=== PATIENT | male | born 1990 | race Caucasian/White ===

== ENCOUNTER 2025-04-26 23:12 | Emergency (ER) | payer OTHER, SELFPAY ==
[2025-04-26 23:31] VITALS: BP 93/70
[2025-04-27 00:50] VITALS: BMI 22.3
--- NOTE | 2025-04-27 00:52 | EDRN ---
Pt complains of 'really bad stomach pains.' Brother adds pt has had diarrhea x 5 days, at least 10 times per day for past 3 days. Pt thought he was better and was able to eat yesterday and couple times today and says pain returned worse. Pt does
not have abd pain now. Pt has had nausea, no vomiting. No fever/chills/cough, cp, sob, urinary symptoms, dizziness, ill contacts. Pt has felt weak. Pt returned from a cruise 8 days ago and symptoms started 3-4 days afterwards. Last episode
diarrhea was couple hours before arrival to ED. Little nausea now. 'Stomach feels really really empty' which pt says he thinks makes him feels nausea now. Last ate around 1800.
[2025-04-27 01:02] VITALS: BP 97/68
[2025-04-27 01:16] LABS: Hematocrit 42.7 % (39.0-52.0); Hemoglobin 14.9 g/dL (13.0-18.0); Mean Corp Hgb Conc. 34.9 g/dL (33.0-37.0); Mean Corpuscular Volume 92.8 fL (80.0-94.0); Nucleated Red Blood Cells % 0 % (-); Platelet Count 239 10^3/uL (130-400); Red Cell Dist. Width 11.7 % (11.5-14.5)
--- NOTE | 2025-04-27 01:28 | ED.GENMED ---
History of Present Illness
General
Chief Complaint: Abdominal Pain
Source: patient
Time Seen by Provider: 04/27/25 01:21
History of Present Illness
History of Present Illness:
35-year-old male with no significant past medical history presents to the emergency department for evaluation of generalized abdominal pain for the last few days accompanied with multiple episodes of loose stool, currently at time of my exam pain is
improved and notes that he has not had diarrhea in the last 24 hours. Patient endorses recent travel on a cruise to [place], no other known sick contacts or recent antibiotics. Denies any fevers. He does note that when he wiped a couple of times
he did notice a small little streak of blood on the toilet paper but overall no blood with in the stool. He denies any fevers, chills, rigors, urinary symptoms, chest pain or shortness of breath. No known history of ulcerative colitis or Crohn's
disease. Social history was otherwise noncontributory.
Past History
Past History
ED Past Medical History: None
ED Past Surgical History: Tonsilectomy
Social History
Tobacco: Smoker
Alcohol: None
Drug: None
Personal: Single
Living: with family
Employment: Employed
Review of Systems
Review of Systems
All Other Systems: ROS reviewed and negative except as documented in HPI and ROS
Phy Exam
Physical Exam
Physical Exam:
GENERAL: Alert , in no apparent distress
EYE: clear conjunctiva b/l
HEAD: NCAT
ENT: mmm.
CARDIAC: Regular rate and rhythm .
LUNGS: Clear breath sounds bilaterally, no acute respiratory distress, no wheezes/rales/rhonchi
ABDOMEN: Soft, without focal tenderness, no r/g, no cvat
NEUROLOGICAL: Alert and oriented
SKIN: Warm and dry, skin intact.
MUSCULOSKELETAL: No edema, well perfused.
PSYCH: Normal and appropriate interaction.
Scores
Heart Failure Risk
Heart Failure Risk Score: Not Applicable
Heart Score for Chest Pain Patients
STEMI patient?: Not applicable
Withdrawal Assessment of Alcohol
Withdrawal Assessment Completed?: Not applicable
Course
Orders/Labs/Results
Orders:
Orders
04/27/25 00:56
IV Insert/Care/Rem.- Treatment PRN
04/27/25 01:02
Complete Blood Count/With Diff Urgent
Comprehensive Metabolic Panel Urgent
Lipase Urgent
04/27/25 01:28
CT Abd/pelvis W Iv Cont Urgent
Comment:
Reason For Exam: generalized abd pain, diarrhea
Abnormal Lab Results
04/27/25
01:02
RBC 4.60 L 10^6/uL
(4.70-6.10)
MCH 32.4 H pg
(27.0-31.0)
MPV 10.5 H fL
(7.4-10.4)
Absolute Monos (auto) 1.0 H 10^3/uL
(0.1-0.6)
Lymphocytes % 18.0 L %
(20.5-51.1)
Monocytes % 12.3 H %
(1.7-9.3)
04/27/25 01:02
04/27/25 01:02
Vital Signs
Initial and Last Documented VS:
Initial Vital Signs
Temp Pulse Resp BP Pulse Ox
99.7 F 92 18 93/70 98
04/26/25 23:31 04/26/25 23:31 04/26/25 23:31 04/26/25 23:31 04/26/25 23:31
Last Documented Vital Signs
Temp Pulse Resp BP Pulse Ox
98.6 F 89 16 97/68 99
04/27/25 01:02 04/27/25 01:02 04/27/25 01:02 04/27/25 01:02 10/25/25 01:32
MDM/Problems Addressed
Differential Diagnosis Includes:
Colitis
Travelers Diarrhea
UC
Crohns disease
Diverticulitis
C. Diff Colitis
Appy
MDM/Problems Addressed:
35-year-old male presenting the ER for evaluation of generalized abdominal pain with some frequent episodes of diarrhea, symptoms over the last 12 hours or so seem to have been mildly improved. Arrives to the ER hemodynamically stable, overall
well-appearing and in no acute distress. Labs initiated in triage are reassuring. Will obtain CT to further evaluate. Suspect mild case of travelers diarrhea/colitis. Disposition pending.
*Radiology
Radiology exam reviewed: radiology read reviewed
*Pulse Oximetry
SaO2: 99
Oxygen Mode of Delivery: Room air
Patient hypoxic: no
*Critical Care Note
Total Time (30-74mins, 75-104mins- exclusive of procedures): Not Applicable
Patient Management
Escalation/DeEscalation of care consider admission/obs:
CT scan compatible with colitis. Patient remains overall well-appearing and in no acute distress. I did advise patient this was likely self-limiting and would get better on its own however I did provide him with a prescription for Cipro to take
for 3 days if symptoms persist throughout the weekend or symptoms seem to worsen. He is aware of return precautions to the ER. Otherwise stable for discharge home. I did consider obtaining stool sample however patient was unable to provide a
sample while in the ER.
ED Attending Note
-
Portions of this chart may have been created with voice recognition software.� Occasional wrong word or��sound alike� substitutions may have occurred due to the inherent limitations of voice recognition software.
Discharge Plan
Departure
Patient Disposition: Home (Routine Discharge)
Date of Disposition: 04/27/25
Time of Disposition: 02:26
Patient with high blood pressure during this ER visit?: No
Discharge Problem:
Colitis
Instructions: Colitis (DC)
Prescriptions:
New
ciprofloxacin HCl [Cipro] 500 mg tablet
500 mg PO BID 3 Days Qty: 6 0RF
No Action
diclofenac sodium 75 mg tablet,delayed release (DR/EC)
75 mg PO BID PRN (Reason: Pain) Qty: 20 0RF
ondansetron 4 mg Tablet,Disintegrating
4 mg PO BIDPRN PRN (Reason: nausea/vomiting) Qty: 10 0RF
dicyclomine 20 mg tablet
20 mg PO BID Qty: 14 0RF
Referrals:
NONE,* [Family Provider, Internal Medicine]
Interventions
Interventions:
*Risk Screen - Suicide Last Done: 04/26/25 23:31
*General Assessment Last Done: 04/27/25 00:50
*Neglect/Abuse Screening Last Done: 04/27/25 00:50
*ED- Fall Risk Assessment Last Done: 04/27/25 00:50
*ED COVID-19 Vaccine History Last Done: 04/27/25 00:50
*ED Influenza Vaccine History Last Done: 04/27/25 00:50
*Nursing Disposition Last Done: 04/27/25 02:45
ES-Jxcpla-Aafwchyvsq Assessment Last Done: 04/27/25 01:09
Discharge Date and Time
Discharge Date/Time: 04/27/25 02:45
Print Language: EGYPTIAN
[2025-04-27 01:36] LABS: ALT (SGPT) 18 U/L (0-50); AST (SGOT) 19 U/L (17-59); Albumin 4.2 g/dl (3.5-5.0); Alkaline Phosphatase 46 U/L (38-126); Blood Urea Nitrogen 11 mg/dl (9-20); Calcium 9.6 mg/dl (8.4-10.2); Carbon Dioxide 29 mmol/L (22-30); Chloride 103 mmol/L (98-107); Estimated Creatinine Clearance 101 ml/min; Glucose 97 mg/dl (70-99); Lipase 41 U/L (23-300); Potassium 4.1 mmol/L (3.5-5.1); Sodium 138 mmol/L (135-145); Total Protein 6.4 g/dl (6.3-8.2); eGFR > 60.00
== END 2025-04-27 02:45 | disposition home or self-care (01) ==
LOC: EMR 23:12
PROVIDERS: EMERGENCY PHYSICIAN Emergency Medicine
DX: R10.84 Generalized abdominal pain (principal); K52.9 Noninfective gastroenteritis and colitis, unspecified; F17.200 Nicotine dependence, unspecified, uncomplicated; Z88.1 Allergy status to other antibiotic agents; Z88.2 Allergy status to sulfonamides
CPT/HCPCS: 99284; 74177; 80053; 83690; 85025; Q9967

== ENCOUNTER 2025-04-27 18:21 | Emergency (ER) | payer OTHER, SELFPAY ==
[2025-04-27 18:38] VITALS: BP 107/72
[2025-04-27 18:53] LABS: Hematocrit 45.7 % (39.0-52.0); Hemoglobin 15.7 g/dL (13.0-18.0); Mean Corp Hgb Conc. 34.4 g/dL (33.0-37.0); Mean Corpuscular Volume 93.5 fL (80.0-94.0); Nucleated Red Blood Cells % 0 % (-); Platelet Count 255 10^3/uL (130-400); Red Cell Dist. Width 11.8 % (11.5-14.5)
[2025-04-27 19:14] LABS: ALT (SGPT) 18 U/L (0-50); AST (SGOT) 19 U/L (17-59); Albumin 4.3 g/dl (3.5-5.0); Alkaline Phosphatase 45 U/L (38-126); Blood Urea Nitrogen 9 mg/dl (9-20); Calcium 9.7 mg/dl (8.4-10.2); Carbon Dioxide 31 mmol/L (22-30); Chloride 101 mmol/L (98-107); Glucose 105 mg/dl (70-99); Lipase 37 U/L (23-300); Potassium 4.0 mmol/L (3.5-5.1); Sodium 135 mmol/L (135-145); Total Protein 6.8 g/dl (6.3-8.2); eGFR > 60.00
[2025-04-27 19:43] VITALS: BP 93/68
[2025-04-27 19:46] VITALS: BMI 22.9
[2025-04-27 20:00] VITALS: BP 102/71
--- NOTE | 2025-04-27 20:10 | ED.GENMED ---
History of Present Illness
General
Chief Complaint: Abdominal Symptoms
Source: patient
Exam Limitations: none
Time Seen by Provider: 04/27/25 19:57
History of Present Illness
History of Present Illness:
See MDM
Past History
Past History
ED Past Medical History: None
ED Past Surgical History: Tonsilectomy
Social History
Tobacco: Smoker
Alcohol: None
Drug: None
Personal: Single
Living: with family
Employment: Employed
Phy Exam
Physical Exam
Physical Exam:
See MDM
Course
Orders/Labs/Results
Orders:
Orders
04/27/25 18:45
Complete Blood Count/With Diff Urgent
Comprehensive Metabolic Panel Urgent
Lipase Urgent
04/27/25 20:10
0.9% Sodium Chloride 1000 ml [Nss] 1,000 ml IV BOLUS
Dicyclomine [Bentyl] 20 mg PO NOW STA
Ketorolac [Toradol] 30 mg IV NOW STA
Ondansetron Injectable [Zofran] 4 mg IV NOW STA
04/27/25 21:30
STOOL [C difficile Antigen & Toxins] Urgent
JUSTIN Source: Feces/Stool
Specimen Description:
Date Specimen was Collected: 04/27/25
Time Specimen was Collected: 21:27
Stool Culture Urgent
JUSTIN Source: Feces/Stool
Specimen Description:
Date Specimen was Collected: 04/27/25
Time Specimen was Collected: 21:27
Abnormal Lab Results
04/27/25
18:45
MCH 32.1 H pg
(27.0-31.0)
Absolute Monos (auto) 1.0 H 10^3/uL
(0.1-0.6)
Monocytes % 17.1 H %
(1.7-9.3)
Carbon Dioxide 31 H mmol/L
(22-30)
Glucose 105 H mg/dl
(70-99)
04/27/25 18:45
04/27/25 18:45
Vital Signs
Initial and Last Documented VS:
Initial Vital Signs
Temp Pulse Resp BP Pulse Ox
99.0 F 64 18 107/72 100
04/27/25 18:38 04/27/25 18:38 04/27/25 18:38 04/27/25 18:38 04/27/25 18:38
Last Documented Vital Signs
Temp Pulse Resp BP Pulse Ox
99.0 F 79 17 102/61 97
04/27/25 18:38 04/27/25 21:16 04/27/25 21:16 04/27/25 22:03 04/27/25 22:04
MDM/Problems Addressed
Differential Diagnosis Includes:
Note:
CHIEF COMPLAINT(S)
Abdominal pain and diarrhea.
HISTORY OF PRESENT ILLNESS
The patient is a 35-year-old male with no known history of Crohns disease or ulcerative colitis who presents with abdominal pain and diarrhea. The symptoms began approximately one week after returning from a cruise. The abdominal pain is described
as crampy, with a sensation of excess gas. There is no report of recent travel beyond the cruise. The patient was seen in the ED and just started Cipro. He has experienced incomplete relief with just one dose of antibiotics so far. The patient
reports that his pain sometimes feels like a cramping or gaseous nature, suggesting inflammation or irritation of the colon lining. There is no past stool sample collection for stool culture or testing. He appears dehydrated and experiences
increased pain with food consumption, likely due to the gastrocolic reflex.
PAST MEDICAL AND SURGICAL HISTORY
The patient denies a history of Crohns disease or ulcerative colitis.
CHRONIC MEDICAL CONDITIONS SIGNIFICANTLY AFFECTING CARE
None reported.
SOCIAL DETERMINANTS AFFECTING HEALTH
The patient expresses concern over returning to work and requests documentation to excuse him from work until at least next Tuesday or sooner if symptoms improve, indicating possible employment-related stress due to illness.
PHYSICAL EXAM
General: Alert, no acute distress.
Skin: Warm, dry.
Head: Normocephalic, atraumatic
Neck: Appears supple, trachea midline.
Eyes, Ears, Nose, Mouth, and Throat: Dry mucous membranes
Cardiovascular: No signs of cyanosis
Respiratory: Respirations are non-labored.
Abdomen: Non-distended. No significant tenderness
Musculoskeletal: No deformities
Neurological: No focal neurological deficit observed.
Psychiatric: Cooperative, appropriate mood and affect.
PLAN
- Continue antibiotics as prescribed.
- Obtain a stool sample for testing to differentiate between infectious versus inflammatory causes of colitis.
- Administer intravenous fluids and anti-nausea medication (unspecified in discussion).
- Administer ketorolac (intravenous version of ibuprofen) and dicyclomine for intestinal spasms.
- Consider discharge with a note for work, allowing return by Tuesday or sooner if symptomatically improved.
DIFFERENTIAL DIAGNOSIS
The Differential Diagnosis includes, in no particular order and is not limited to:
- Infectious colitis
- Inflammatory bowel disease (Crohns disease, ulcerative colitis)
- Irritable bowel syndrome
- Viral gastroenteritis
- Ischemic colitis (unlikely)
- Travelers diarrhea
- Antibiotic-associated diarrhea
- Small bowel obstruction
- Foodborne illness
- Parasitic infection
SUMMARY OF ENCOUNTER
The patient presented to the emergency department with abdominal pain and diarrhea following a cruise. Prior imaging suggested colitis, and antibiotics were initiated. Options presented included going home with pain management or staying for further
observation and work-up. A decision was made to administer intravenous fluids, anti-nausea medication, ketorolac, and dicyclomine. Additional stool sampling was advised to determine the infectious or inflammatory nature of the colitis.
DISPOSITION
The plan includes sending the patient home with follow-up instructions. The patient has requested a work excuse note.
ASSESSMENT
Suspected infectious or inflammatory colitis requiring further diagnostic evaluation and treatment adjustment.
EMERGENCY TREATMENTS ADMINISTERED
- Intravenous fluids for dehydration
- Ketorolac (intravenous) for pain management
- Administration of dicyclomine for intestinal spasm relief.
PATIENT EDUCATION AND COUNSELING
The patient was counseled on the importance of completing the antibiotic course and the need for stool sample analysis to guide further treatment. Discussion regarding the potential impacts of colitis and the importance of avoiding dehydration by
maintaining adequate fluid intake.
FOLLOW-UP INSTRUCTIONS
Should symptoms persist or worsen, the patient is advised to follow up with a gastrointestinal specialist.
MEDICATION RECONCILIATION
Ketorolac and dicyclomine were administered in the emergency department. A prescription for continuation of antibiotics was reconfirmed with the patient.
MEDICAL DECISION MAKING
-Complexity of Data Reviewed:
Chronic conditions affecting care: No chronic conditions noted
Differential Diagnosis list:
- Infectious colitis
- Inflammatory bowel disease (Crohns disease, ulcerative colitis)
- Irritable bowel syndrome
- Viral gastroenteritis
- Ischemic colitis (unlikely)
- Travelers diarrhea
- Antibiotic-associated diarrhea
- Small bowel obstruction
- Foodborne illness
- Parasitic infection
-Data:
Category 1: Lab tests reviewed
No emergency department records to review.
Category 2:
External records were not specifically mentioned as reviewed.
Stool sample testing discussed but not yet obtained
Category 3:
Management and treatment options discussed with the patient, including fluid administration, pain and symptom management, and the importance of follow-up testing.
-Risk:
Prescription medication was prescribed.
Care significantly affected by Social Determinants of Health: The patient requires an off-work note which may indicate employment-related stress.
Consideration of Admission/Observation: Escalation of care including admission/observation was considered given the complexity and risk of the patients presenting complaint, exam findings, and/or their underlying comorbidities. However, ultimately I
feel the patient is safe for outpatient management with close follow-up. Reasoning: Work-up reassuring, does not reveal any acute life/organ threatening processes, patients symptoms well controlled upon reevaluation, reexamination is reassuring,
vitals are stable, patient agreeable with discharge, reliable for follow-up.
DIAGNOSIS
- Infectious colitis (ICD-10: A09)
- Dehydration (ICD-10: E86.0)
SUMMARY OF ENCOUNTER
The patient returned to the emergency department with worsening abdominal pain and diarrhea, recently diagnosed with colitis. After starting ciprofloxacin, symptoms continued. Management included intravenous fluids, ondansetron, and dicyclomine.
Following treatment, the patient reported significant improvement and opted for discharge. A stool sample was collected for culture analysis.
DISPOSITION
Discharge
ASSESSMENT
Suspected infectious colitis
EMERGENCY TREATMENTS ADMINISTERED
Intravenous fluids, ondansetron (Zofran), and dicyclomine (Bentyl)
PLAN
Continue antibiotics, symptomatic management at home, and follow up with primary care. Await stool culture results for further diagnostic clarification.
INDEPENDENT REVIEW OF LABS AND INTERPRETATION OF TESTS
My independent review of stool sample collection indicates pending culture for differential diagnosis of colitis.
PATIENT EDUCATION AND COUNSELING
The patient was educated on the importance of completing the antibiotic course, staying hydrated, return precautions, and follow-up care with a primary care provider.
FOLLOW-UP INSTRUCTIONS
Schedule a follow-up appointment with a primary care physician. Await results of the stool culture to guide further management.
MEDICATION RECONCILIATION
Ciprofloxacin continued; ondansetron and dicyclomine were administered during the visit.
MEDICAL DECISION MAKING
-Complexity of Data Reviewed: Differential diagnosis list includes infectious colitis, inflammatory bowel disease, irritable bowel syndrome, viral gastroenteritis, ischemic colitis (unlikely), travelers diarrhea, antibiotic-associated diarrhea,
small bowel obstruction, foodborne illness, and parasitic infection.
-Data:
Category 1: Stool sample collected for culture.
Category 3: No consultations with other healthcare providers were specifically mentioned.
-Risk: Prescription medication (ciprofloxacin) was continued. Consideration of Admission/Observation: Escalation of care, including admission/observation, was considered given the complexity and risk of the patients presenting complaint, exam
findings, and underlying comorbidities. However, ultimately, I feel the patient is safe for outpatient management with close follow-up. Reasoning: Work-up reassuring, does not reveal any acute life/organ-threatening processes, patients symptoms well
controlled upon reevaluation, reexamination is reassuring, vitals are stable, patient agreeable with discharge, reliable for follow-up.
DIAGNOSIS
Infectious colitis (ICD-10: A09)
*Pulse Oximetry
SaO2: 99
Oxygen Mode of Delivery: Room air
Patient hypoxic: no
*Critical Care Note
Total Time (30-74mins, 75-104mins- exclusive of procedures): Not Applicable
ED Attending Note
-
Portions of this chart may have been created with voice recognition software.� Occasional wrong word or��sound alike� substitutions may have occurred due to the inherent limitations of voice recognition software.
Discharge Plan
Departure
Patient Disposition: Home (Routine Discharge)
Date of Disposition: 04/27/25
Time of Disposition: 22:16
Patient with high blood pressure during this ER visit?: No
Discharge Problem:
Colitis
Prescriptions:
New
diclofenac sodium 75 mg tablet,delayed release (DR/EC)
75 mg PO BID PRN (Reason: Pain) Qty: 20 0RF
ondansetron 4 mg Tablet,Disintegrating
4 mg PO BIDPRN PRN (Reason: nausea/vomiting) Qty: 10 0RF
dicyclomine 20 mg tablet
20 mg PO BID Qty: 14 0RF
No Action
ciprofloxacin HCl [Cipro] 500 mg tablet
500 mg PO BID 3 Days Qty: 6 0RF
Referrals:
NONE,* [Family Provider, Internal Medicine]
Stand Alone Forms: Return to Work
Activity Restrictions/Additional Instructions:
Please return for any worsening symptoms.
You may return at any time if you have further concerns.
Please follow up with your doctor at the first available appointment, preferably this week.
Thank you for choosing [facility].
Interventions
Interventions:
*Risk Screen - Suicide Last Done: 04/27/25 18:38
*General Assessment Last Done: 04/27/25 18:38
*Neglect/Abuse Screening Last Done: 04/27/25 18:38
*ED- Fall Risk Assessment Last Done: 04/27/25 19:47
*ED COVID-19 Vaccine History Last Done: 04/27/25 19:47
*ED Influenza Vaccine History Last Done: 04/27/25 19:47
BV-Khkrdv-Aldcagyfyj Assessment Last Done: 04/27/25 20:12
Discharge Date and Time
Print Language: MACANESE
[2025-04-27] MEDS: BENTYL 20 MG PO (20:21)
[2025-04-27] MEDS: ZOFRAN 4 MG IV (20:21)
[2025-04-27] MEDS: TORADOL 30 MG IV (20:22)
[2025-04-27] MEDS: NSS 1000 IV (20:26)
[2025-04-27 22:03] VITALS: BP 102/61
== END 2025-04-27 22:30 | disposition home or self-care (01) ==
LOC: EMR 18:21
PROVIDERS: Student in an Organized Health Care Education/Training Program; EMERGENCY PHYSICIAN Student in an Organized Health Care Education/Training Program
DX: R10.9 Unspecified abdominal pain (principal); A09 Infectious gastroenteritis and colitis, unspecified; E86.0 Dehydration; F17.200 Nicotine dependence, unspecified, uncomplicated; Z88.1 Allergy status to other antibiotic agents; Z88.2 Allergy status to sulfonamides
CPT/HCPCS: 99284; 96374; 96375; 96361; 80053; 83690; 85025; 87045; 87046; 87324; 87427; 87449